=== PATIENT | female | born 1990 | race Caucasian/White ===

== ENCOUNTER 2017-02-14 09:39 | Emergency (ER) | payer OTHER | END 2017-02-14 10:34 | disposition home or self-care (01) | LOC: FER 09:39 | DX: L02.416 Cutaneous abscess of left lower limb (principal); D68.62 Lupus anticoagulant syndrome; Z88.1 Allergy status to other antibiotic agents; Z79.01 Long term (current) use of anticoagulants; Z79.899 Other long term (current) drug therapy | CPT/HCPCS: 99283 ==